=== PATIENT | female | born 1990 | race African-American/Black ===

== ENCOUNTER 2017-01-13 04:06 | Emergency (ER) | payer SELFPAY ==
[~2017-01-13] VITALS: Ht 162.6 cm; Wt 60.8 kg
[2017-01-13 04:23] VITALS: BP 111/68
--- NOTE | 2017-01-13 04:30 | PHYS DOC ---
Adult General Chief Complaint Chief Complaint: SORE THROAT HPI HPI Patient is a 26 year old F who presents with sore throat and difficulty swallowing. Patient states for the past 3 hours she's had worsening sore throat and difficulty swallowing and tonsillar swelling. Patient have difficulty swallowing her saliva. Patient complains of a fever. Patient denies any chest pain or shortness of breath. Patient has no other symptoms. Review of Systems Review of Systems GEN: Denies fevers, chills, sweats HEENT: Sore throat CV: Denies chest pain RESP: Denies shortness of air, cough GI: Denies n/v/d NEURO: Denies confusion, dizziness MSK: Denies weakness, joint pain/swelling Allergies Allergies Allergies Coded Allergies Type Severity Reaction Last Updated Verified No Known Drug Allergies 01/13/17 No Physical Exam Physical Exam GEN.: Moderate distress. Alert and oriented. HEENT: Head is normocephalic, atraumatic, there is pharyngeal erythema, tonsillar swelling with no exudate, drooling NECK: Supple, cervical lymph adenopathy bilaterally LUNGS: CTAB. HEART: RRR, S1, S2 present. Peripheral pulses intact ABDOMEN: Soft, nontender. Positive bowel sounds. EXTREMITIES: Without any cyanosis. NEUROLOGIC: Multiple speech PSYCHIATRIC: Normal affect, normal mood. SKIN: No ulcerations Current Patient Data Lab Results Laboratory Tests Test 01/13/17 04:37 01/13/17 04:52 White Blood Count 11.4 x10^3/uL Red Blood Count 3.97 x10^6/uL Hemoglobin 12.3 g/dL Hematocrit 37.3 % Mean Corpuscular Volume 94 fL Mean Corpuscular Hemoglobin 31 pg Mean Corpuscular Hemoglobin Concent 33 g/dL Red Cell Distribution Width 13.2 % Platelet Count 238 x10^3/uL Neutrophils (%) (Auto) 78 % Lymphocytes (%) (Auto) 14 % Monocytes (%) (Auto) 7 % Eosinophils (%) (Auto) 0 % Basophils (%) (Auto) 1 % Neutrophils # (Auto) 8.9 x10^3uL Lymphocytes # (Auto) 1.6 x10^3/uL Monocytes # (Auto) 0.8 x10^3/uL Eosinophils # (Auto) 0.0 x10^3/uL Basophils # (Auto) 0.1 x10^3/uL Sodium Level 139 mmol/L Potassium Level 4.0 mmol/L Chloride Level 103 mmol/L Carbon Dioxide Level 29 mmol/L Anion Gap 7 Blood Urea Nitrogen 13 mg/dL Creatinine 1.0 mg/dL Estimated GFR (Cockcroft-Gault) 81.7 Glucose Level 78 mg/dL Lactic Acid Level 1.1 mmol/L Calcium Level 8.9 mg/dL Group A Streptococcus Rapid Negative Bedside Urine HCG, Qualitative hcg negative Current Medications Medications (Trade) Dose Ordered Sig/Swapna Route PRN Reason Start Time Stop Time Status Last Admin Dose Admin Sodium Chloride 1,000 ml @ 1,000 mls/hr 1X ONCE IV 01/13/17 04:45 01/13/17 05:44 Ketorolac Tromethamine (Toradol) 30 mg 1X ONCE IV 01/13/17 04:45 01/13/17 04:46 DC Dexamethasone Sodium Phosphate (Decadron) 10 mg 1X ONCE IV 01/13/17 04:45 01/13/17 04:46 DC Iohexol (Omnipaque 300 Mg/ml) 75 ml 1X ONCE IV 01/13/17 04:45 01/13/17 04:46 DC 01/13/17 04:56 Info (Do NOT chart on this entry -- for MONITORING) 1 each PRN DAILY PRN MC SEE COMMENTS 01/13/17 05:00 01/15/17 04:59 EKG EKG [] Radiology/Procedures Radiology/Procedures CT scan read by the radiologist, reviewed by me. Soft tissue swelling in the region of the adenoids was no abscess evident. Multiple small lymph nodes in the neck. Specifically the epiglottis appeared normal with no abscess seen. [] Course & Med Decision Making Course & Med Decision Making Pertinent Labs and Imaging studies reviewed. (See chart for details) ED course: Patient was seen and examined emergency room CBC, BMP, blood culture, lactic acid, CT soft tissue neck with contrast, Decadron, Toradol, 1 L normal saline, rapid strep test were ordered 0530: Patient was reevaluated stated that her throat was feeling better and she was not drooling, awaiting CT results 0600 patient care was assumed from Dr. Hi. We discussed the patient's history, exam, results, and pending CT scan. CT scan read by the radiologist shows only soft tissue swelling in the region of the adenoids was no abscess, multiple small lymph nodes in the neck. Nothing concerning in terms of abscess, asymmetry, airway issues. ED RN reports that patient's temp is down to 99. Patient has had a liter of normal saline. She has been up to the bathroom. I visited with the patient and her family member. She states she feels a lot better. She is able to talk without difficulty. Voice sounds normal. She is swallowing without difficulty. We discussed likely viral etiology of her symptoms. We will continue the steroids started by Dr. Hi. See instructions for plan. [] Dragon Disclaimer Dragon Disclaimer This chart was dictated in whole or in part using Voice Recognition software in a busy, high-work load, and often noisy Emergency Department environment. It may contain unintended and wholly unrecognized errors or omissions. Departure Departure: Impression: Primary Impression: Pharyngitis Additional Impression: Acute viral pharyngitis Disposition: HOME, SELF-CARE Condition: IMPROVED Referrals: PCP,[place] (PCP) Patient Instructions: Sore Throat, [id number] Additional Instructions: Stay home for 2 days, rest, plenty of fluids. You were given a note to be off work today and tomorrow. Ibuprofen 800 mg ( 4 of the OTC 200 mg pills) every 6-8 hours for fever and sore throat. Prednisone as prescribed, this is an anti-inflammatory and will help with swelling and pain. As we discussed, test for strep was negative, and this is likely a virus, so antibiotics will not help. It will just have to run its course like a cold. Scripts Prednisone (PREDNISONE) 10 Mg Tablet 30 MG PO DAILY for sore throat for 3 Days, #9 TAB First dose was given in emergency department Start this medicine on Sunday morning Prov: LUIS A MEADE MD 01/13/17 Problem Qualifiers Primary Impression: Pharyngitis Pharyngitis/tonsillitis etiology: unspecified etiology Qualified Codes: J02.9 - Acute pharyngitis, unspecified MISSY HI DO Jan 13, 2017 04:30 LUIS A MEADE MD Jan 13, 2017 06:20
[2017-01-13] MEDS ORDERED: IOHEXOL 300 MG/ML 75 ML VIAL. IV ONE (04:45)
[2017-01-13] MEDS ORDERED: IV NORMAL SALINE 1,000ML 1,000 ML IV ONE (04:45)
[2017-01-13] MEDS ORDERED: DEXAMETHASONE SOD PHOS 10 MG/ML VIAL IV ONE (04:45)
[2017-01-13] MEDS ORDERED: KETOROLAC 30 MG/ML VIAL. IV ONE (04:45)
[2017-01-13] MEDS ORDERED: CONTRAST GIVEN MC PRN (05:00)
[2017-01-13 05:07] LABS: BASO # 0.1 x10^3/uL (0.0-0.2); BASO % 1 % (0-3); EOS % 0 % (0-3); HEMATOCRIT 37.3 % (36.0-47.0); HEMOGLOBIN 12.3 g/dL (12.0-15.5); LYMPH # 1.6 x10^3/uL (1.0-4.8); LYMPH % 14 % (24-48); MEAN CORPUSCULAR HEMOGLOBIN 31 pg (25-35); MEAN CORPUSCULAR HGB CONC 33 g/dL (31-37); MEAN CORPUSCULAR VOLUME 94 fL (79-100); MONO # 0.8 x10^3/uL (0.0-1.1); MONO % 7 % (0-9); NEUT # 8.9 x10^3uL (1.8-7.7); NEUT % 78 % (31-73); PLATELET COUNT 238 x10^3/uL (140-400); RED BLOOD COUNT 3.97 x10^6/uL (3.50-5.40); RED CELL DISTRIBUTION WIDTH 13.2 % (11.5-14.5); WHITE BLOOD COUNT 11.4 x10^3/uL (4.0-11.0)
[2017-01-13 05:13] LABS: CALCIUM 8.9 mg/dL (8.5-10.1); GFR 81.7
--- NOTE | 2017-01-13 06:06 | RAD ---
CT soft tissue neck with contrast: Reason for examination: Sore throat and drooling with fever today. Helical images were obtained through the neck with intravenous administration of 75 cc Omnipaque 300. Reconstruction was performed in sagittal and coronal planes. Exposure: One or more of the following individualized dose reduction techniques were utilized for this examination: 1. Automated exposure control 2. Adjustment of the mA and/or kV according to patient size 3. Use of iterative reconstruction technique. The visualized portions of the maxillary antra. Be clear. Muscular bundles are symmetric. No abnormalities seen at the parotid or submandibular glands. No abnormality seen at the thyroid gland. Vascular structures show normal blood flow. There are a few small nonspecific lymph nodes present. No abscesses are seen. No abnormality seen at the trachea or esophagus visualized. Vocal cords are symmetric. The vallecula and piriform sinuses are symmetric. No abnormality seen at the epiglottis. There is some soft tissue swelling in the region of the adenoids. No abscesses are seen. No abnormality seen in the cervical spine. IMPRESSION: Soft tissue swelling in the region of the adenoids with no abscess evident. Multiple small lymph nodes in the neck. Electronically signed by: Ramandeep Bird MD (01/13/2017 6:03 AM) [place] [id number]
[2017-01-13] MEDS ORDERED: PRED-220 PO (06:20)
== END 2017-01-13 06:35 | disposition home or self-care (01) ==
LOC: ER 04:06
DX: J02.8 Acute pharyngitis due to other specified organisms (principal); B97.89 Other viral agents as the cause of diseases classified elsewhere
CPT/HCPCS: 36415; 70491; 80048; 81025; 83605; 85027; 87040; 87070; 87880; 96361; 96374; 96375; 99285; J1100; J1885; Q9967; J7030

== ENCOUNTER 2017-01-16 13:49 | Emergency (ER) | payer SELFPAY ==
[2017-01-16 13:49] VITALS: BP 103/70
[~2017-01-16 13:49] MED LIST: PRED-220 PO
--- NOTE | 2017-01-16 14:47 | PHYS DOC ---
General Chief Complaint: SORE THROAT Stated Complaint: SORE THROAT Time Seen by MD: 14:21 Problems: History of Present Illness Initial Comments Patient is a 26-year-old female reportedly coming to the ED with sore throat. A rapid strep and mononucleosis screen were ordered upon patient arrival. I did not see the patient I was waiting for results. At 50 minutes the patient left without being seen she refused to sign AMA papers. Allergies: Coded Allergies: No Known Drug Allergies (Unverified , 01/13/17) Departure Time of Disposition: 14:47 Disposition: 07 AGAINST MEDICAL ADVICE Additional Instructions: Patient left prior to evaluation she was not seen by me. DEXTER SADLER DO Jan 16, 2017 14:47
[2017-01-16 14:58] LABS: MONONUCLEOSIS PATIENT NEGATIVE (NEGATIVE)
[2017-01-17] MEDS ORDERED: AMOX875T PO (07:46)
== END 2017-01-16 14:45 | disposition left against medical advice (07) ==
LOC: ER 13:49
DX: J02.9 Acute pharyngitis, unspecified (principal)
CPT/HCPCS: 86308; 99281

== ENCOUNTER 2017-01-17 06:56 | Emergency (ER) | payer SELFPAY ==
[~2017-01-17] VITALS: Ht 162.6 cm; Wt 61.2 kg
[2017-01-17] MEDS: KETOROLAC 30 MG/ML VIAL. IV ONE (07:41)
[2017-01-17] MEDS: DEXAMETHASONE SOD PHOS 10 MG/ML VIAL IV ONE (07:41)
[2017-01-17 07:42] LABS: BASO # 0.2 x10^3/uL (0.0-0.2); BASO % 1 % (0-3); EOS % 0 % (0-3); HEMATOCRIT 35.3 % (36.0-47.0); HEMOGLOBIN 11.7 g/dL (12.0-15.5); LYMPH # 3.4 x10^3/uL (1.0-4.8); LYMPH % 19 % (24-48); MEAN CORPUSCULAR HEMOGLOBIN 31 pg (25-35); MEAN CORPUSCULAR HGB CONC 33 g/dL (31-37); MEAN CORPUSCULAR VOLUME 93 fL (79-100); MONO # 1.5 x10^3/uL (0.0-1.1); MONO % 8 % (0-9); NEUT # 12.5 x10^3uL (1.8-7.7); NEUT % 71 % (31-73); PLATELET COUNT 262 x10^3/uL (140-400); RED BLOOD COUNT 3.79 x10^6/uL (3.50-5.40); RED CELL DISTRIBUTION WIDTH 12.9 % (11.5-14.5); WHITE BLOOD COUNT 17.5 x10^3/uL (4.0-11.0)
[2017-01-17] MEDS ORDERED: AMOX875T PO (07:46)
--- NOTE | 2017-01-17 07:50 | PHYS DOC ---
Past History Past Medical History: Anemia Past Surgical History: No Surgical History Alcohol Use: Occasionally Drug Use: None Adult General Chief Complaint Chief Complaint: SORE THROAT HPI HPI Patient is a 26 year old F who presents with sore throat. Patient was seen on January 13, 2017 by myself for similar symptoms of severe sore throat and inability to swallow her saliva. Patient was worked up with a CT scan of the neck that was unremarkable and a rapid strep was negative. Patient return to the emergency room 2 days later and had a Monospot test that was also negative. Patient has been on on steroids with waxing and waning symptoms. Patient denies any fevers. Patient states she woke up this morning with difficulty swallowing and a sore throat. Patient denies any chest pain or short of breath. Patient denies any other symptoms. Review of Systems Review of Systems GEN: Denies fevers, chills, sweats HEENT: Sore throat CV: Denies chest pain RESP: Denies shortness of air, cough GI: Denies n/v/d NEURO: Denies confusion, dizziness MSK: Denies weakness, joint pain/swelling Current Medications Current Medications Current Medications Medications (Trade) Dose Ordered Sig/Swapna Start Time Stop Time Status Last Admin Dose Admin Dexamethasone Sodium Phosphate (Decadron) 10 mg 1X ONCE 01/17/17 07:45 01/17/17 07:46 Ketorolac Tromethamine (Toradol) 30 mg 1X ONCE 01/17/17 08:00 01/17/17 08:01 Allergies Allergies Allergies Coded Allergies Type Severity Reaction Last Updated Verified No Known Drug Allergies 01/13/17 No Physical Exam Physical Exam GEN.: No apparent distress. Alert and oriented. HEENT: Head is normocephalic, atraumatic, posterior pharynx is erythematous with swollen tonsils, TMs clear bilaterally, patient has a muffled voice NECK: Supple. LUNGS: CTAB. HEART: RRR, S1, S2 present. Peripheral pulses intact ABDOMEN: Soft, nontender. Positive bowel sounds. EXTREMITIES: Without any cyanosis. NEUROLOGIC: Normal speech, normal tone PSYCHIATRIC: Normal affect, normal mood. SKIN: No ulcerations Current Patient Data Vital Signs Vital Signs Date Time Temp Pulse Resp B/P (MAP) Pulse Ox O2 Delivery O2 Flow Rate FiO2 01/17/17 06:56 98.7 67 20 100 Room Air Lab Results Laboratory Tests Test 01/17/17 07:30 White Blood Count 17.5 x10^3/uL Red Blood Count 3.79 x10^6/uL Hemoglobin 11.7 g/dL Hematocrit 35.3 % Mean Corpuscular Volume 93 fL Mean Corpuscular Hemoglobin 31 pg Mean Corpuscular Hemoglobin Concent 33 g/dL Red Cell Distribution Width 12.9 % Platelet Count 262 x10^3/uL Neutrophils (%) (Auto) 71 % Lymphocytes (%) (Auto) 19 % Monocytes (%) (Auto) 8 % Eosinophils (%) (Auto) 0 % Basophils (%) (Auto) 1 % Neutrophils # (Auto) 12.5 x10^3uL Lymphocytes # (Auto) 3.4 x10^3/uL Monocytes # (Auto) 1.5 x10^3/uL Eosinophils # (Auto) 0.0 x10^3/uL Basophils # (Auto) 0.2 x10^3/uL Platelet Estimate Pending Sodium Level 140 mmol/L Potassium Level 3.7 mmol/L Chloride Level 105 mmol/L Carbon Dioxide Level 28 mmol/L Anion Gap 7 Blood Urea Nitrogen 12 mg/dL Creatinine 0.8 mg/dL Estimated GFR (Cockcroft-Gault) 105.8 BUN/Creatinine Ratio 15 Glucose Level 86 mg/dL Calcium Level 8.5 mg/dL Total Bilirubin 0.2 mg/dL Aspartate Amino Transf (AST/SGOT) 6 U/L Alanine Aminotransferase (ALT/SGPT) 14 U/L Alkaline Phosphatase 67 U/L Total Protein 7.0 g/dL Albumin 3.1 g/dL Albumin/Globulin Ratio 0.8 Current Medications Medications (Trade) Dose Ordered Sig/Swapna Route PRN Reason Start Time Stop Time Status Last Admin Dose Admin Dexamethasone Sodium Phosphate (Decadron) 10 mg 1X ONCE IV 01/17/17 07:45 01/17/17 07:46 DC 01/17/17 07:41 Ketorolac Tromethamine (Toradol) 30 mg 1X ONCE IV 01/17/17 08:00 01/17/17 08:01 DC 01/17/17 07:41 Penicillin G Potassium [id number] unit/Sodium Chloride 50 ml @ 100 mls/hr 1X ONCE IV 01/17/17 08:00 01/17/17 08:29 01/17/17 07:56 EKG EKG [] Radiology/Procedures Radiology/Procedures [] Course & Med Decision Making Course & Med Decision Making Pertinent Labs and Imaging studies reviewed. (See chart for details) ED course: Patient was seen and examined the emergency room CBC, CMP, 10 mg Decadron, penicillin was ordered 0731: transfer center contacted 0740: Strep cultures were resulted this morning as positive for group C beta- hemolytic strep 0741: Results were communicated to the patient and family who stated they did not want to be transferred to for further evaluation and would like to just be treated with antibiotics and wanted to follow-up 0743: Transfer to was canceled 0820: On reexamination the patient stated much better, able to control her secretions, in no acute distress. 0900: Patient is asymptomatic and all antibiotics have been infused and she is wanting to go home. MDM: After reviewing the chart, CC/HPI/PMH, physical exam, [lab results], I do not believe the patient has a severe bacterial infection warranting further workup and/or admission at this time. I do not believe the patient has a peritonsillar abscess since she had a CT scan on January 04, 1917 that was unremarkable. After reviewing the patient's culture results she has group C strep and will be treated with antibiotics accordingly. I do not believe the patient has an impending airway. Despite having a white count of 17,000 I do not believe the patient is septic and believe that the white count could be elevated secondary to her infection and steroid use. Patient was offered transfer to for further evaluation and management by ENT however the declined the transfer and would like to be treated by antibiotics and follow-up. Additional verbal discharge instructions were provided to the patient and that if symptoms get worse or any new symptoms arise that are worrisome to the patient she is to return to the emergency room immediately [] Dragon Disclaimer Dragon Disclaimer This chart was dictated in whole or in part using Voice Recognition software in a busy, high-work load, and often noisy Emergency Department environment. It may contain unintended and wholly unrecognized errors or omissions. Departure Departure: Impression: Primary Impression: Strep throat Disposition: HOME, SELF-CARE Condition: IMPROVED Referrals: PCP,NO (PCP) Patient Instructions: Strep Throat Additional Instructions: Please follow up with her family doctor next one to 2 days and return if symptoms increase Scripts Amoxicillin (AMOXICILLIN) 875 Mg Tablet 1 TAB PO BID, #20 TAB Prov: MISSY HI DO 01/17/17 MISSY HI DO Jan 17, 2017 07:50
[2017-01-17 07:54] LABS: ALBUMIN 3.1 g/dL (3.4-5.0); ALBUMIN/GLOBULIN RATIO 0.8 (1.0-1.7); CALCIUM 8.5 mg/dL (8.5-10.1); CREATININE 0.8 mg/dL (0.6-1.0); GFR 105.8; POTASSIUM 3.7 mmol/L (3.5-5.1); TOTAL BILIRUBIN 0.2 mg/dL (0.2-1.0)
[2017-01-17] MEDS: PENICILLIN G K 2,500,000 UNIT in IV NORMAL SALINE 50ML 50 ML IV ONE (07:56)
[2017-01-17 08:16] VITALS: BP 113/66
[2017-01-17 08:58] LABS: % BANDS 2 % (0-9); % LYMPHS 16 % (24-48); % MONOS 7 % (0-10); % SEGS 75 % (35-66)
[2017-01-17 08:59] LABS: PLATELET CLUMP PRESENT; PLT ESTIMATE ADEQUATE (ADEQUATE)
== END 2017-01-17 09:00 | disposition home or self-care (01) ==
LOC: ER 06:56
DX: J02.0 Streptococcal pharyngitis (principal); Z86.2 Personal history of diseases of the blood and blood-forming organs and certain disorders involving the immune mechanism
CPT/HCPCS: 36415; 80053; 85007; 85027; 96361; 96374; 96375; 99284; J1100; J1885; J2540